=== PATIENT | female | born 1995 | race Two or more races ===

== ENCOUNTER 2018-06-28 22:53 | Emergency (ER) | payer BC ==
[~2018-06-28] VITALS: Ht 165.1 cm; Wt 113.4 kg
[2018-06-29] MEDS ORDERED: KETO10TA2 PO (01:10)
== END 2018-06-29 01:29 | disposition home or self-care (01) ==
LOC: ER 22:53
DX: M94.0 Chondrocostal junction syndrome [Tietze] (principal); R07.89 Other chest pain